=== PATIENT | male | born 1970 | race Caucasian/White ===

== ENCOUNTER 2021-05-08 11:08 | Emergency (ER) | payer BC | END 2021-05-08 15:15 | disposition home or self-care (01) | LOC: ER1 11:08 | DX: S80.11XA Contusion of right lower leg, initial encounter (principal); I10 Essential (primary) hypertension; Z86.718 Personal history of other venous thrombosis and embolism; Z79.899 Other long term (current) drug therapy; Z79.82 Long term (current) use of aspirin; W22.8XXA Striking against or struck by other objects, initial encounter; Y92.009 Unspecified place in unspecified non-institutional (private) residence as the place of occurrence of the external cause | CPT/HCPCS: 73552; 73562; 73590; 73701; 85379; 96372; 96374; 99284; J0595; J1650; Q9967 ==

== ENCOUNTER → 2021-05-09 | Outpatient (CLI) | payer BC | LOC: EROP 09:32 → US 09:32 | DX: S89.92XA Unspecified injury of left lower leg, initial encounter (principal) | CPT/HCPCS: 93971 ==